=== PATIENT | female | born 1945 | race Caucasian/White ===

== ENCOUNTER 2016-12-17 07:01 | Day surgery (SDC) | payer MEDICARE, OTHER ==
[~2016-12-17] VITALS: Ht 167.6 cm; Wt 96.3 kg
[2016-12-17] MEDS ORDERED: DITROPAN 5MG TAB5 MG PO (08:02)
[2016-12-17] MEDS ORDERED: KEPPRA 500MG500 MG PO (08:02)
[2016-12-17] MEDS ORDERED: LEXAPRO 10MG10 MG PO (08:02)
[2016-12-17] MEDS ORDERED: LUTEIN6 MG (08:03)
[2016-12-17] MEDS ORDERED: COUMADIN 2MG2 MG/TAB PO (08:03)
[2016-12-17 08:26] VITALS: BP 104/45; PULSE 51; TEMP 98.2
[2016-12-17 17:15] VITALS: BP 122/50; PULSE 65; TEMP 98
[2016-12-17 17:30] VITALS: BP 120/55; PULSE 65; TEMP 98
[2016-12-17] MEDS ORDERED: COLACE 100100 MG/CAP PO (17:30)
[2016-12-17] MEDS ORDERED: NORCO 325 MG-51 TAB PO (17:30)
[2016-12-17] MEDS ORDERED: MOTRIN 600600 MG/TAB PO (17:31)
[2016-12-17 17:45] VITALS: BP 120/63; PULSE 66; TEMP 98
== END 2016-12-17 19:20 | disposition home or self-care (01) ==
LOC: SDCO 07:01 → SURG 18:08 → SDCO 19:20
DX: D05.12 Intraductal carcinoma in situ of left breast (principal); F32.9 Major depressive disorder, single episode, unspecified; I48.91 Unspecified atrial fibrillation; I25.2 Old myocardial infarction; E78.5 Hyperlipidemia, unspecified; R56.9 Unspecified convulsions; G47.33 Obstructive sleep apnea (adult) (pediatric); M19.90 Unspecified osteoarthritis, unspecified site; Z79.01 Long term (current) use of anticoagulants; Z80.49 Family history of malignant neoplasm of other genital organs; Z80.0 Family history of malignant neoplasm of digestive organs
CPT/HCPCS: OP; A9541; J0690; J1100; J2250; J2405; J2704; J2795; J3010; J7120

== ENCOUNTER 2017-01-25 08:25 | Day surgery (SDC) | payer MEDICARE, OTHER ==
[2017-01-25] VITALS (9 sets, daily range): BP systolic 105–140; BP diastolic 42–73; PULSE 51–133; TEMP 97.5
[~2017-01-25] VITALS: Ht 167.6 cm; Wt 99.0 kg
[~2017-01-25 08:25] MED LIST: COLACE 100100 MG/CAP PO; COUMADIN 2MG2 MG/TAB PO; DITROPAN 5MG TAB5 MG PO; KEPPRA 500MG500 MG PO; LEXAPRO 10MG10 MG PO; LUTEIN6 MG; MOTRIN 600600 MG/TAB PO; NORCO 325 MG-51 TAB PO
[2017-01-25] MEDS ORDERED: COUMADIN 3MG3 MG/TAB PO (09:19)
[2017-01-25] MEDS ORDERED: COUMADIN 2MG2 MG/TAB PO (09:19)
[2017-01-25] MEDS ORDERED: KEPPRA1000 MG PO (09:20)
[2017-01-25] MEDS ORDERED: KEPPRA 500MG500 MG PO (09:20)
[2017-01-25] MEDS ORDERED: CENTRUM SILVER1 CTB PO (09:21)
[2017-01-25] MEDS ORDERED: CALCIUM 600/VIT1 CAP PO (09:21)
[2017-01-25 09:43] LABS: INR 2.1 (0.8-3.0); PROTHROMBIN TIME 24.4 SECONDS (9.7-12.8)
[2017-01-25] MEDS ORDERED: TYLENOL 325MG325 MG PO (10:13)
[2017-01-25] MEDS ORDERED: NORCO 325 MG-51 TAB PO (11:37)
[2017-01-25] MEDS ORDERED: COLACE 100100 MG/CAP PO (11:44)
== END 2017-01-25 14:35 | disposition home or self-care (01) ==
LOC: SDCO 08:25
PROVIDERS: Surgery
DX: C50.912 Malignant neoplasm of unspecified site of left female breast (principal); I48.91 Unspecified atrial fibrillation; I25.2 Old myocardial infarction; E78.5 Hyperlipidemia, unspecified; G47.33 Obstructive sleep apnea (adult) (pediatric); F32.9 Major depressive disorder, single episode, unspecified; Z79.01 Long term (current) use of anticoagulants; Z85.3 Personal history of malignant neoplasm of breast; Z85.72 Personal history of non-Hodgkin lymphomas
CPT/HCPCS: C1788; J0690; J1644; J2704; J7120

== ENCOUNTER → 2018-03-16 | Outpatient (CLI) | payer MEDICARE, OTHER ==
[~2018-03-16] MED LIST changes: +CALCIUM 600/VIT1 CAP PO; +CENTRUM SILVER1 CTB PO; +COUMADIN 3MG3 MG/TAB PO; +KEPPRA1000 MG PO; +TYLENOL 325MG325 MG PO
== END ==
LOC: COL.RAD 03-15 10:00
DX: C50.412 Malignant neoplasm of upper-outer quadrant of left female breast (principal); Z95.828 Presence of other vascular implants and grafts
CPT/HCPCS: A9503; Q9967

== ENCOUNTER → 2018-11-16 | Outpatient (CLI) | payer MEDICARE, OTHER | LOC: COL.RAD 08:41 | DX: Z01.812 Encounter for preprocedural laboratory examination (principal); C50.412 Malignant neoplasm of upper-outer quadrant of left female breast | CPT/HCPCS: A9503; Q9967 ==